=== PATIENT | male | born 1990 | race Caucasian/White ===

== ENCOUNTER 2016-11-19 19:57 | Emergency (ER) | payer BC ==
[2016-11-19] MEDS ORDERED: OXYCODONE-ACETAMINOPHEN 5-325 MG TABLET PO ONE (21:45)
--- NOTE | 2016-11-19 21:45 | ER Document Report ---
ED Extremity Problem, Upper - General Chief Complaint: Shoulder Injury Stated Complaint: RIGHT SHOULDER INJURY Time Seen by Provider: 11/19/16 20:28 Notes: Patient is a 26-year-old male who comes emergency department for chief complaint of injury to the right shoulder. He states he rode down in a rented water slide in when he hit the bottom he fell forward and hit the ground with his shoulder area. He states almost immediately after he had a sharp pain which brought him to his knees. He denies neck pain, head injury, denies any other areas of pain. He denies any past medical history. He took Advil 1.5 hours before arriving. TRAVEL OUTSIDE OF THE [place] IN LAST 30 DAYS: No - Related Data Allergies/Adverse Reactions: No Known Allergies Allergy (Unverified 11/19/16 20:22) Past Medical History - General Information source: Patient - Social History Smoking Status: Never Smoker Chew tobacco use (# tins/day): No Frequency of alcohol use: None Drug Abuse: None Lives with: Family Family History: Reviewed & Not Pertinent Patient has suicidal ideation: No Patient has homicidal ideation: No - Medical History Medical History: Negative Renal/ Medical History: Denies: Hx Peritoneal Dialysis Surgical Hx: Negative - Immunizations Hx Diphtheria, Pertussis, Tetanus Vaccination: Yes Review of Systems - Review of Systems Constitutional: No symptoms reported EENT: No symptoms reported Cardiovascular: No symptoms reported Respiratory: No symptoms reported Gastrointestinal: No symptoms reported Genitourinary: No symptoms reported Male Genitourinary: No symptoms reported Musculoskeletal: See HPI Skin: No symptoms reported Hematologic/Lymphatic: No symptoms reported Neurological/Psychological: No symptoms reported Physical Exam - Vital signs Vitals: Temp Pulse Resp BP Pulse Ox 98.1 F 63 18 133/75 H 95 11/19/16 20:18 11/19/16 20:18 11/19/16 20:18 11/19/16 20:18 11/19/16 20:18 Interpretation: Normal - General General appearance: Appears well, Alert In distress: None - Patient alert and well-appearing - HEENT Head: Normocephalic, Atraumatic Eyes: Normal Conjunctiva: Normal Extraocular movements intact: Yes Eyelashes: Normal Pupils: PERRL Nasal: Normal Mouth/Lips: Normal Mucous membranes: Normal Pharynx: Normal Neck: Normal - Respiratory Respiratory status: No respiratory distress Chest status: Nontender Breath sounds: Normal. No: Decreased air movement, Wheezing Chest palpation: Normal - Cardiovascular Rhythm: Regular. No: Tachycardia Heart sounds: Normal auscultation, S1 appreciated, S2 appreciated Murmur: No - Abdominal Inspection: Normal Distension: No distension Bowel sounds: Normal Tenderness: Nontender Organomegaly: No organomegaly - Back Back: Normal, Nontender. No: Tender, Vertebra tenderness - Extremities General upper extremity: Other - Tender in the area of the posterior shoulder generally, no soft tissue swelling noted, patient is very muscular. Painful with any movement of the right arm. Normal director long term care, normal distal neurovascular exam, normal upper extremity exam otherwise. General lower extremity: Normal inspection, Nontender, Normal color, Normal ROM , Normal temperature, Normal weight bearing. No: Nav's sign - Neurological Neuro grossly intact: Yes Cognition: Normal Orientation: AAOx4 [place] Coma Scale Eye Opening: Spontaneous [place] Coma Scale Verbal: Oriented Mariya Coma Scale Motor: Obeys Commands Lowell Coma Scale Total: 15 Speech: Normal Motor strength normal: LUE, RUE, LLE, RLE Sensory: Normal - Psychological Associated symptoms: Normal affect, Normal mood - Skin Skin Temperature: Warm Skin Moisture: Dry Skin Color: Normal Course - Re-evaluation Re-evalutation: Reviewed x-ray, shows right scapular fracture with no obvious osseous abnormalities. Patient has already been sent for a CAT scan of the chest without contrast. This was also reviewed, shows no pneumothorax, rib fractures , shoulder dislocation, or other abnormalities in the scapular fracture. Patient with normal distal neurovascular exam, no noted swelling or severe pain , he is actually very well-appearing. No other signs of injury of the back, neck, head, no other symptoms reported. Discussed treatment, follow-up, return precautions, provided a work release and pain medication, provided with sling, discussed return precautions, patient states that he will follow-up with orthopedics and return for any concerning symptoms. - Vital Signs Vital signs: Temp Pulse Resp BP Pulse Ox 98 F 68 20 142/78 H 100 11/19/16 22:36 11/19/16 22:36 11/19/16 22:36 11/19/16 22:36 11/19/16 22:36 Discharge - Discharge Clinical Impression: Scapula fracture Qualifiers: Encounter type: initial encounter Scapula location: body Fracture type: closed Fracture alignment: nondisplaced Laterality: right Qualified Code(s): S42.114A - Nondisplaced fracture of body of scapula, right shoulder, initial encounter for closed fracture Condition: Stable Disposition: HOME, SELF-CARE Additional Instructions: Imaging shows a fracture of the scapula, no other abnormal findings noted. This will take approximately 6 weeks to heal. Use the sling, rest, take the pain medication as prescribed, follow up with the Orthopedic referral for additional management. Return to the ED for any concerning symptoms - severe pain, redness, severe swelling of the shoulder/arm, numbness, etc. Prescriptions: Oxycodone HCl/Acetaminophen [Percocet 5-325 mg Tablet] 1 - 2 tab PO Q4H PRN #20 tablet PRN Reason: Forms: Special Work Note, Return to Work, Elevated Blood Pressure
[2016-11-19 22:37] VITALS: BP 142/78
== END 2016-11-19 22:36 | disposition home or self-care (01) ==
LOC: ER 19:57
DX: S42.114A Nondisplaced fracture of body of scapula, right shoulder, initial encounter for closed fracture (principal); W18.39XA Other fall on same level, initial encounter; Y93.19 Activity, other involving water and watercraft
CPT/HCPCS: 71250; 99284

== ENCOUNTER 2016-12-24 18:40 | Emergency (ER) | payer BC ==
--- NOTE | 2016-12-24 20:04 | ER Document Report ---
HPI - HPI Patient complains to provider of: work note Pain Level: 0 Context: Patient is a 26-year-old male who was evaluated here November 19 and diagnosed with a right scapular fracture. Patient states that he was never instructed to follow-up with orthopedics that he never did. Patient was told to return here in 5-6 weeks as long as he had no pain on range of motion is intact for clearance to go back to work. Patient states that his arm feels 100%, denies any pain, stiffness, range of motion issues. Patient works for the [employer], denies any heavy lifting required on his job. - DERM Skin Color: Normal Past Medical History - Social History Smoking Status: Never Smoker Family History: Reviewed & Not Pertinent Patient has suicidal ideation: No Patient has homicidal ideation: No Renal/ Medical History: Denies: Hx Peritoneal Dialysis - Immunizations Hx Diphtheria, Pertussis, Tetanus Vaccination: Yes Vertical Provider Document - CONSTITUTIONAL Agree With Documented VS: Yes Exam Limitations: No Limitations General Appearance: WD/WN, No Apparent Distress - INFECTION CONTROL TRAVEL OUTSIDE OF THE [place] IN LAST 30 DAYS: No - NECK Neck: Normal Inspection, Other - No evidence of spinous process or paraspinous muscle tenderness range of motion intact - RESPIRATORY Respiratory: Breath Sounds Normal, No Respiratory Distress, Chest Non-Tender O2 Sat by Pulse Oximetry: 98 - CARDIOVASCULAR Cardiovascular: Regular Rate, Regular Rhythm, No Murmur - MUSCULOSKELETAL/EXTREMETIES Musculoskeletal/Extremeties: MAEW, FROM, Non-Tender, No Edema. negative: Eccymosis - NEURO Level of Consciousness: Awake, Alert, Appropriate Motor/Sensory: No Motor Deficit, No Sensory Deficit - DERM Integumentary: Warm, Dry, No Rash. negative: Laceration Course - Re-evaluation Re-evalutation: 12/24/16 20:48 Patient is a 26-year-old male who presents for work note. Patient with no signs for underlying fracture given range of motion is intact with sensation intact and no pain. Patient to follow-up with orthopedist. - Vital Signs Vital signs: Temp Pulse Resp BP Pulse Ox 98.2 F 103 H 14 135/57 H 98 12/24/16 18:41 12/24/16 18:41 12/24/16 18:41 12/24/16 18:41 12/24/16 18:41 Discharge - Discharge Clinical Impression: visit for return to work note Condition: Good Disposition: HOME, SELF-CARE Additional Instructions: Stable for return to work Follow up with orthopedics as needed Forms: Special Work Note Referrals: TISHA GALLEGO MD [ACTIVE STAFF] - Follow up as needed
[2016-12-24 20:28] VITALS: BP 134/80
== END 2016-12-24 20:35 | disposition home or self-care (01) ==
LOC: ER 18:40
DX: S42.101D Fracture of unspecified part of scapula, right shoulder, subsequent encounter for fracture with routine healing (principal); X58.XXXD Exposure to other specified factors, subsequent encounter
CPT/HCPCS: 99281